=== PATIENT | male | born 1945 | race Caucasian/White ===

== ENCOUNTER 2024-03-16 08:10 | Day surgery (SDC) | payer MEDICARE, BC, SELFPAY ==
[2024-03-16] VITALS (7 sets, daily range): BP systolic 109–134; BP diastolic 59–78; PULSE 72–86; RESP 12–17; TEMP 36.2–36.3; O2SAT 95–97; BMI 20.5
[2024-03-16 10:22] LABS: Alanine Aminotransferase 15 U/L (10-49); Albumin, Serum 4.8 gm/dL (3.4-4.8); Albumin/Globulin Ratio 1.9 (1.2-2.2); Alkaline Phosphatase 72 U/L (46-116); Anion Gap 14 (7-16); Aspartate Amino Transferase 21 U/L (0-34); BUN/Creatinine Ratio 15 Ratio (12-20); Bilirubin,Total 1.3 mg/dL (0.3-1.2); Blood Urea Nitrogen 16 mg/dL (9-23); Calcium 9.9 mg/dL (8.3-10.6); Calcium (Corrected) 9.9 mg/dL (8.5-10.1); Carbon Dioxide 21.5 mMol/L (20.0-31.0); Chloride 105 mMol/L (98-107); Creatinine (Component) 1.1 mg/dL (0.6-1.3); Estimated Creatinine Clearance 47.9 mL/min (>60); Globulin 2.5 gm/dL (2.3-3.5); Glucose 93 mg/dL (74-106); Osmolality,Calculated 280 (275-295); Potassium 3.4 mMol/L (3.4-5.1); Sodium 140 mMol/L (136-145); Total Protein 7.3 gm/dL (5.7-8.2); eGFR > 60 See Note
[2024-03-16] MEDS: SODIUM CHLORIDE 0.9% 500 ML 500 ML 20 ML IV (10:57)
--- NOTE | 2024-03-16 11:47 | SUR.PHASEII ---
pt able to tolerate oral fluids without difficulty swallowing or nausea/vomiting.
--- NOTE | 2024-03-16 12:22 | SUR.PHASEII ---
pt awake and alert, breathing unlabored on room air. v/s stable. pt able to ambulate to wheelchair with steady gait. d/c instructions given with Kimberli in room, all questions answered. pt d/c via wheelchair with steady gait.
== END 2024-03-16 12:22 | disposition home or self-care (01) ==
PROVIDERS: Anesthesiology; Referring Provider Specialist; Visit Provider Specialist
PROC: (CPT 43239; principal; 2024-03-16 15:15)
PROC: 0DBE8ZX Excision of Large Intestine, Via Natural or Artificial Opening Endoscopic, Diagnostic (ICD-10-PCS; CPT 45380; 2024-03-16 15:15)
DX: K64.9 Unspecified hemorrhoids (principal); K57.30 Diverticulosis of large intestine without perforation or abscess without bleeding; K22.10 Ulcer of esophagus without bleeding; K21.00 Gastro-esophageal reflux disease with esophagitis, without bleeding; K29.70 Gastritis, unspecified, without bleeding
CPT/HCPCS: 45378; 43239; 36415; 80053; A4649; J7040

== ENCOUNTER 2024-06-14 14:03 | Emergency (ER) | payer MEDICARE, BC, SELFPAY ==
[2024-06-14 14:05] VITALS: BMI 20.7
[2024-06-14 14:16] VITALS: BP 143/79; PULSE 91; RESP 18; TEMP 36.9; O2SAT 94
--- NOTE | 2024-06-14 14:28 | EKG_ITS ---
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
--- NOTE | 2024-06-14 14:28 | XR_ITS ---
Examination: Shoulder,left, 3 views Technique: Shoulder AP internal rotation, AP external rotation, Y view shoulder, 3 views Exam date and time :June 14, 2024 1431 hrs. Indications: Patient fell 2 days ago with injury to the shoulder, shoulder pain. Findings: No shoulder fracture or dislocation Advanced narrowing glenohumeral joint Impression: No fracture
--- NOTE | 2024-06-14 15:00 | PD.EDUPEX ---
Upper Extremity Injury RME/HPI General Chief Complaint: Fall Stated Complaint: Fall yesterday, Pain Left shoulder, left chest Time Seen by Provider: 06/14/24 14:07 Source: patient Arrival date/time: 06/14/24 14:03 78-year-old male with a history of hyperlipidemia, hypertension presents to the emergency room with a chief complaint of a ground-level fall that occurred yesterday afternoon causing him to fall on his left shoulder. Patient states he fell back on the chair and there was no head injury neck injury. Mode of arrival: ambulatory Limitations: no limitations Related Data Home Medications ?Medication ?Instructions ?Recorded ?Confirmed alfuzosin 10 mg tablet,extended 10 mg PO QDAY 03/16/24 03/16/24 release 24 hr atorvastatin 20 mg tablet 20 mg PO QDAY 03/16/24 03/16/24 fluoxetine 40 mg capsule 40 mg PO QDAY 03/16/24 03/16/24 lamotrigine 200 mg tablet 200 mg PO QDAY 03/16/24 03/16/24 lorazepam 2 mg tablet 2 mg PO QDAY PRN Anxiety 03/16/24 03/16/24 Held on 03/16/24. Instructions: Resume on 03/17/24. losartan 50 mg tablet 50 mg PO QDAY 03/16/24 03/16/24 methylphenidate HCl 10 mg tablet 10 mg PO QDAY 03/16/24 03/16/24 omeprazole 20 mg tablet,delayed 20 mg PO QDAY 03/16/24 03/16/24 release sildenafil 25 mg tablet 25 mg PO QDAY 03/16/24 03/16/24 Allergies Allergy/AdvReac Type Severity Reaction Status Date / Time ciprofloxacin (From Cipro) Allergy Rash Verified 03/16/24 08:44 Sulfa (Sulfonamide AdvReac Unknown RASH Verified 03/16/24 08:43 Antibiotics) Review of Systems Review of Systems Systems Reviewed: All systems reviewed, normal except as documented Constitutional Constitutional: Reports system reviewed and no additional complaints, except as documented, Denies fatigue, Denies fever(s), Denies headache(s) and Denies weakness Eyes Eyes: Reports system reviewed and no additional complaints, except as documented, Denies blurry vision and Denies change in vision ENT Ears, Nose, Mouth, and Throat: Reports system reviewed and no additional complaints, except as documented, Denies otalgia, Denies headache(s), Denies nasal congestion, Denies throat swelling and Denies vertigo Cardiovascular Cardiovascular: Reports system reviewed and no additional complaints, except as documented, Denies chest pain, Denies dyspnea and Denies dyspnea on exertion Respiratory Respiratory: Reports system reviewed and no additional complaints, except as documented, Denies chest congestion, Denies cough, Denies dyspnea, Denies dyspnea on exertion and Denies wheezing Gastrointestinal Gastrointestinal: Reports system reviewed and no additional complaints, except as documented, Denies abdominal pain, Denies cramping, Denies nausea and Denies vomiting Genitourinary Genitourinary: Reports system reviewed and no additional complaints, except as documented, Denies dysuria and Denies hematuria Musculoskeletal Musculoskeletal: Reports system reviewed and no additional complaints, except as documented, Reports arthralgias, Denies back pain, Reports joint swelling and Reports limited range of motion Integumentary/Breasts Skin/Breast: Reports system reviewed and no additional complaints, except as documented and Denies wounds Neurologic Neurologic: Reports system reviewed and no additional complaints, except as documented, Denies confusion, Denies headache(s), Denies lack of coordination, Denies vertigo and Denies weakness Psychiatric Psychiatric: Reports system reviewed and no additional complaints, except as documented, Denies anxiety, Denies confusion, Denies depression, Denies paranoia, Denies suicidal ideation and Denies tactile hallucinations Endocrine Endocrine: Reports system reviewed and no additional complaints, except as documented and Denies fatigue Hematologic/Lymphatic Hematologic/Lymphatic: Reports system reviewed and no additional complaints, except as documented and Denies lymphadenopathy Allergic/Immunologic Allergic/Immunologic: Reports system reviewed and no additional complaints, except as documented, Denies throat swelling, Denies urticaria and Denies wheezing Past Medical History Past Medical History NEUROLOGIC: Negative Neurological Disorders or Seizures CARDIAC: Positive Cardiac Disorders and Hypertension; Negative Congestive Heart Failure RESPIRATORY: Negative Chronic Obstructive Pulmonary Disease (COPD) GASTROINTESTINAL: Positive Gastrointestinal Disorders, Diverticulitis and Diverticulosis GENITOURINARY: Positive Benign Prostatic Hyperplasia; Negative Renal Disease MUSCULOSKELETAL: Positive Musculoskeletal Disorders and Arthritis ENT: Positive Cataracts ENDOCRINE: Negative Diabetes Mellitus Type 1 or Diabetes Mellitus Type 2 PSYCHO/SOCIAL: Negative Depression or Anxiety OTHER HISTORY: Positive Chicken Pox, Measles and Mumps; Negative Blood Transfusions or Anesthesia Reactions Social History SMOKING STATUS: Never smoker ED Exam General Limitations: Present no limitations General appearance: Present alert and in no apparent distress Head Head exam: Present atraumatic, normocephalic and normal inspection Eye Eye exam: Present normal appearance, PERRL and EOMI ENT ENT exam: Present normal exam, normal oropharynx and mucous membranes moist Neck Neck exam: Present normal inspection, full ROM and trachea midline Chest Chest inspection: Present normal inspection and symmetric chest wall rise Respiratory Respiratory exam: Present normal lung sounds bilaterally Cardiovascular Cardiovascular exam: Present regular rate, normal rhythm and normal heart sounds Abdominal Exam Abdominal exam: Present soft and normal bowel sounds Extremities Exam Extremities exam: Present normal inspection and full ROM Expanded Upper Extremity Exam Shoulder exam: Present tenderness, swelling and tenderness over AC joint; Absent full ROM Arm exam: Present normal inspection Elbow exam: Present normal inspection Forearm/Wrist exam: Present normal inspection Hand exam: Present normal inspection Vascular exam: Normal capillary refill Back Exam Back exam: Present normal inspection and full ROM Neurological Exam Neurological exam: Present alert, oriented X3, CN II-XII intact, normal gait and reflexes normal Expanded Neurological Exam Patient oriented to: Present person, place and time Speech: Present fluid speech Cranial nerves: Normal: EOM function (II, III, IV, ), facial sensation (V) and facial palsy (VII) Cerebellar function: Present normal gait Motor strength - LUE: 5/5 Motor strength - RUE: 5/5 Motor strength - LLE: 5/5 Motor strength - RLE: 5/5 Coma scale eye opening: spontaneous Coma scale motor response: obeys commands Coma scale verbal response: oriented Coma scale total: 15 Psychiatric Psychiatric exam: Present normal affect and normal mood Skin Skin exam: Present warm, dry, intact and normal color Course Quality Measures none Orders Category Date Time Status EKG (ED ONLY) *Do not use* NOW Care 06/14/24 14:29 Completed EKG (ED Only) Stat Exams 06/14/24 14:28 Draft XR shoulder LT min 2V Stat Exams 06/14/24 14:28 Completed BNP [B-Type Natriuretic Peptide] Stat Lab 06/14/24 14:55 Completed CBC Stat Lab 06/14/24 14:55 Completed CMP [Comprehensive Metabolic Panel] Stat Lab 06/14/24 14:55 Completed Troponin I Stat Lab 06/14/24 14:55 Completed Vital Signs Vital signs: Vital Signs Temperature 98.4 F 06/14/24 14:16 Pulse Rate 91 06/14/24 14:16 Respiratory Rate 18 06/14/24 14:16 Blood Pressure 143/79 H 06/14/24 14:16 Pulse Oximetry (%) 94 L 06/14/24 14:16 Oxygen Delivery Method Room Air 06/14/24 14:16 O2 saturation 94% within normal limits Extremity Injury MDM Narrative MDM Narrative:: 78-year-old male with a history of hyperlipidemia, hypertension presents to the emergency room with a chief complaint of a ground-level fall that occurred yesterday afternoon causing him to fall on his left shoulder. Patient states he fell back on the chair and there was no head injury neck injury. Patient is hemodynamically stable and in no apparent distress Physical examination shows tenderness and pain with palpation of the left shoulder as well as limited range of motion. Patient struggles to lift his left shoulder over his head. Patient states he had a ground-level fall but fell back on his chair and hit his left shoulder. There is no head injury neck injury. The patient did not lose consciousness. Patient was not dizzy or lightheaded. Patient is a GCS of 15 alert and oriented x 3 pupils are PERRLA EOMs are intact. Patient has a normal steady gait X-ray of the left shoulder was negative for any acute fracture or dislocation. Patient was educated to follow-up with his primary care provider for referral for an MRI to check for any ligament damage of the shoulder. Patient was discharged and educated to follow-up with primary care provider in the next 24 to 48 hours and return to the emergency room for any evidence of worsening signs or symptoms Patient data External records reviewed:: [facility] previous records Clinical information provided by:: patient Social determinants that could affect healthcare access:: none Patient has the following chronic illnesses:: No chronic illness How is presenting disease/condition affected by chronic disease/condition?: no chronic disease Evaluation data The following diagnostics were reviewed and interpreted by me:: lab results and radiology exam(s) Lab and/or radiology exams considered but not ordered:: Labs and radiology exams considered and ordered Interpretation Summary: X-ray of the shoulder-no acute fracture or dislocation Medications / Prescriptions Medications or Prescriptions considered but not ordered:: No medication given Medication administrations:: No medication given Consultations Consultation(s) initiated? (list below): No Diagnosis Upper Extremity Injury Differential Diagnosis: dislocation of shoulder, fracture of clavicle and other (Shoulder fracture/shoulder sprain) Most likely diagnosis given after review of the tests above:: Shoulder sprain Admission Indicated Admission indicated?: not indicated Admission Request Was there a request for admission?: No Disposition Plan Disposition Plan: Discharge Discharge Attestation Discharge Attestation: The patient and all family members were given an opportunity to ask questions and understood the discharge instructions. Discharge instructions specifically effects, indications for sooner follow up or return to the emergency department, and the expected course of current diagnosis. Patient condition: Stable Discharge Plan Plan Patient Disposition: HOME (Self Care) Disposition Comment: Stable Prescriptions/Referrals Prescriptions/Med Rec: No Action losartan 50 mg tablet 50 mg PO QDAY Patient Comments: TAKE 1 TABLET BY MOUTH EVERY DAY fluoxetine 40 mg capsule 40 mg PO QDAY atorvastatin 20 mg tablet 20 mg PO QDAY lamotrigine 200 mg tablet 200 mg PO QDAY methylphenidate HCl 10 mg tablet 10 mg PO QDAY sildenafil 25 mg Tablet 25 mg PO QDAY lorazepam 2 mg tablet 2 mg PO QDAY PRN (Reason: Anxiety) alfuzosin 10 mg tablet extended release 24 hr 10 mg PO QDAY Patient Comments: TAKE 1 TABLET BY MOUTH DAILY omeprazole 20 mg Tablet,Delayed Release (Dr/Ec) 20 mg PO QDAY Referrals: Allison Ivan MD [Primary Care Provider] - In 1 week Problem List Clinical Impression: Shoulder sprain Patient/Caregiver Discharge Instructions Education Materials: ED Shoulder Sprain Additional Instructions: Please follow-up with your primary care provider in the next 24 to 48 hours. X-ray of your left shoulder was completed and there is no acute fractures or dislocations. Please follow-up with your primary care provider as an MRI may be indicated to check for any ligament damage or tears. Your blood work was negative for any acute findings. For any evidence of worsening signs or symptoms return to the emergency room immediately Print Language: Sinhala Stand Alone Forms: [employer] Award Info., Patient Portal Info Letter PA/ALIYA Supervising Physician PA/ALIYA Supervising Physician: Dr. Nails
[2024-06-14 15:12] LABS: Basophils % (Auto) 1 % (0-2.5); Eosinophils % (Auto) 1 % (0-10); Hematocrit 41.8 % (41.0-53.0); Immature Granulocytes % (Auto) 0 % (0-0); Immature Granulocytes Auto 0.02 Thou/mm3 (0.00-0.00); Lymphocytes # (Auto) 1.1 Thou/mm3 (1.0-4.8); Lymphocytes % (Auto) 19 % (10-50); Mean Corpuscular HGB Conc 33.5 g/dl (31.0-37.0); Mean Corpuscular Hemoglobin 29.9 pg (25.0-35.0); Mean Corpuscular Volume 89 fL (80-100); Monocytes # (Auto) 0.5 Thou/mm3 (0.0-0.8); Monocytes % (Auto) 9 % (0-12); Neutrophils # (Auto) 4.2 Thou/mm3 (1.8-7.7); Neutrophils % (Auto) 71 % (37-80); Nucleated Red Blood Cell % 0 /100 WBC (0); Platelet Count 160 Thou/mm3 (140-440); RDW Standard Deviation 47.8 fL (35.1-43.9); Red Blood Count 4.69 Miln/mm3 (4.50-5.90)
[2024-06-14 15:30] LABS: B-Type Natriuretic Peptide < 20 pg/mL (0-100)
[2024-06-14 15:31] LABS: Alanine Aminotransferase 11 U/L (10-49); Albumin, Serum 4.5 gm/dL (3.4-4.8); Albumin/Globulin Ratio 1.8 (1.2-2.2); Alkaline Phosphatase 69 U/L (46-116); Anion Gap 8 (7-16); Aspartate Amino Transferase 17 U/L (0-34); BUN/Creatinine Ratio 23 Ratio (12-20); Bilirubin,Total 0.8 mg/dL (0.3-1.2); Blood Urea Nitrogen 23 mg/dL (9-23); Calcium 9.4 mg/dL (8.3-10.6); Calcium (Corrected) 9.4 mg/dL (8.5-10.1); Carbon Dioxide 24.7 mMol/L (20.0-31.0); Chloride 104 mMol/L (98-107); Estimated Creatinine Clearance 54.7 mL/min (>60); Globulin 2.5 gm/dL (2.3-3.5); Glucose 101 mg/dL (74-106); Osmolality,Calculated 277 (275-295); Potassium 4.1 mMol/L (3.4-5.1); Sodium 137 mMol/L (136-145); Troponin I < 0.020 ng/mL (0.0-0.045); eGFR > 60 See Note
== END 2024-06-14 18:24 | disposition home or self-care (01) ==
PROVIDERS: Nurse Practitioner Family; Emergency Provider Emergency Medicine; PCP Specialist
DX: S43.402A Unspecified sprain of left shoulder joint, initial encounter (principal); W18.30XA Fall on same level, unspecified, initial encounter; E78.5 Hyperlipidemia, unspecified; I10 Essential (primary) hypertension
CPT/HCPCS: 36415; 73030; 80053; 83880; 84484; 85025; 93005; 99283

== ENCOUNTER → 2024-07-16 | Outpatient (BNVA) | payer MEDICARE, BC, SELFPAY | END | disposition home or self-care (01) | PROVIDERS: PCP Specialist; Referring Provider Specialist; Visit Provider Urology | DX: N40.1 Benign prostatic hyperplasia with lower urinary tract symptoms (principal); N13.8 Other obstructive and reflux uropathy; N52.9 Male erectile dysfunction, unspecified; K57.30 Diverticulosis of large intestine without perforation or abscess without bleeding; N28.1 Cyst of kidney, acquired; N40.2 Nodular prostate without lower urinary tract symptoms; I10 Essential (primary) hypertension | CPT/HCPCS: 81003; 99212; G0463 ==

== ENCOUNTER → 2024-07-16 | Outpatient (CLI) | payer MEDICARE, BC, SELFPAY ==
[2024-07-16 14:40] LABS: Prostate Specific Antigen 2.72 ng/mL (0-4.00)
== END | disposition home or self-care (01) ==
PROVIDERS: Referring Provider Urology; Visit Provider Urology
DX: N40.1 Benign prostatic hyperplasia with lower urinary tract symptoms (principal)
CPT/HCPCS: 36415; 84153

== ENCOUNTER 2024-10-10 12:49 | Emergency (ER) | payer MEDICARE, BC, SELFPAY ==
[2024-10-10 13:10] VITALS: BP 116/68; PULSE 83; RESP 18; TEMP 37; O2SAT 96; BMI 23.3
--- NOTE | 2024-10-10 13:16 | XR_ITS ---
Examination: CT brain head without contrast. 2-D sagittal coronal reconstructions Date and time of exam:October 10, 2024, 212 hours Indications: Headaches difficulty walking today CTDI: vol (mGy):77 DLP: (mGycm):1030 Technique: Multiple CT axial sections of the brain have been obtained, 5 mm slice thickness. Contrast has not been administered. 2-D sagittal, coronal reconstructions have been obtained Low dose protocols were performed. One or more of the following dose reduction techniques were used; automated exposure control, adjustment of the mA and/or KV according to patient size, use of iterative reconstruction technique. Findings: No significant ventricular enlargement. Frontal atrophy Intra-axial or extra-axial hemorrhage density is not seen. No mass effect or midline shift Basal cisterns are not remarkable. Fourth ventricle is midline. Cranial vault intact. Impression: Negative for acute hemorrhage, mass effect or midline shift
--- NOTE | 2024-10-10 13:16 | XR_ITS ---
Examination: AP chest single view Technique one AP portable upright chest single view Date and time: October 10, 2024 1339 hrs. Indications: Chest pain today. Findings: Normal heart size. Lungs are clear. The osseous structures are intact. Impression: No active disease Advanced osteoarthritis left glenohumeral joint
--- NOTE | 2024-10-10 13:16 | EKG_ITS ---
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
[2024-10-10 13:48] VITALS: BP 127/65; PULSE 82; RESP 12; O2SAT 93
--- NOTE | 2024-10-10 13:48 | PC.NURSE ---
pt here with c/o fatigue, headache, unsteady balance, not sleeping, and n/v for 4-[address] shahid in to see pt
--- NOTE | 2024-10-10 14:07 | PD.EDNEURO ---
Neuro Symptoms Deficit-RME/HPI General Chief Complaint: Nausea/Vomiting/Diarrhea Stated Complaint: FATIGUE, BODY ACHES, VOMITING BLOOD; UNSTEADY Time Seen by Provider: 10/10/24 13:50 Arrival date/time: 10/10/24 12:49 Limitations: no limitations RME / HPI RME / HPI Narrative: DR. ESPANA MAIN ED EVALUATION: 78 year old male with past medical history significant for hypertension and depression presents to the Emergency Department with complaints of unsteady gait, balance problems, fatigue, and not sleeping well. Onset of symptoms 4-5 days. Patient reports similar symptoms of unsteady gait 6 months ago. Related Data Home Medications ?Medication ?Instructions ?Recorded ?Confirmed alfuzosin 10 mg tablet,extended 10 mg PO QDAY 03/16/24 07/16/24 release 24 hr atorvastatin 20 mg tablet 20 mg PO QDAY 03/16/24 07/16/24 fluoxetine 40 mg capsule 40 mg PO QDAY 03/16/24 07/16/24 lamotrigine 200 mg tablet 200 mg PO QDAY 03/16/24 07/16/24 lorazepam 2 mg tablet 2 mg PO QDAY PRN Anxiety 03/16/24 07/16/24 Held on 03/16/24. Instructions: Resume on 03/17/24. losartan 50 mg tablet 50 mg PO QDAY 03/16/24 07/16/24 methylphenidate HCl 10 mg tablet 10 mg PO QDAY 03/16/24 07/16/24 omeprazole 20 mg tablet,delayed 20 mg PO QDAY 03/16/24 07/16/24 release sildenafil 25 mg tablet 25 mg PO QDAY 03/16/24 07/16/24 Allergies Allergy/AdvReac Type Severity Reaction Status Date / Time ciprofloxacin (From Cipro) Allergy Rash Verified 10/10/24 12:50 Sulfa (Sulfonamide AdvReac Unknown RASH Verified 10/10/24 12:50 Antibiotics) Review of Systems Review of Systems Systems Reviewed: All systems reviewed, normal except as documented Past Medical History Past Medical History CARDIAC: Positive Cardiac Disorders and Hypertension GASTROINTESTINAL: Positive Gastrointestinal Disorders, Diverticulitis and Diverticulosis GENITOURINARY: Positive Benign Prostatic Hyperplasia MUSCULOSKELETAL: Positive Musculoskeletal Disorders and Arthritis ENT: Positive Cataracts PSYCHO/SOCIAL: Positive Depression OTHER HISTORY: Positive Chicken Pox, Measles and Mumps Social History SMOKING STATUS: Never smoker SUBSTANCE USE: does not use ALCOHOL: Never ED Exam General Limitations: Present no limitations General appearance: Present alert and in no apparent distress Head Head exam: Present atraumatic, normocephalic and normal inspection Eye Eye exam: Present normal appearance, PERRL and EOMI ENT ENT exam: Present normal exam, normal oropharynx and mucous membranes moist Neck Neck exam: Present normal inspection, full ROM and trachea midline Chest Chest inspection: Present normal inspection and symmetric chest wall rise Respiratory Respiratory exam: Present normal lung sounds bilaterally Cardiovascular Cardiovascular exam: Present regular rate, normal rhythm and normal heart sounds Abdominal Exam Abdominal exam: Present soft and normal bowel sounds Extremities Exam Extremities exam: Present normal inspection and full ROM Back Exam Back exam: Present normal inspection and full ROM Neurological Exam Neurological exam: Present alert, oriented X3 and CN II-XII intact Expanded Neurological Exam Patient oriented to: Present person, place and time Speech: Present fluid speech Motor strength - LUE: 5/5 Motor strength - RUE: 5/5 Motor strength - LLE: 5/5 Motor strength - RLE: 5/5 Psychiatric Psychiatric exam: Present normal affect and normal mood Skin Skin exam: Present warm, dry, intact and normal color Course Quality Measures none Orders Category Date Time Status CT Screening NOW Care 10/10/24 14:11 Active Pet Feeder NOW Care 10/10/24 14:10 Completed Continuous Pulse Oximetry NOW Care 10/10/24 14:10 Completed EKG (ED ONLY) *Do not use* NOW Care 10/10/24 13:16 Completed Insert IV NOW Care 10/10/24 14:[address] angio carotid w head w Stat Exams 10/10/24 14:[address] head/brain wo con Stat Exams 10/10/24 13:16 Completed EKG (ED Only) Stat Exams 10/10/24 13:16 Draft XR chest 1V portable Stat Exams 10/10/24 13:16 Completed B-Type Natriuretic Peptide Stat Lab 10/10/24 13:52 Completed CBC Stat Lab 10/10/24 13:52 Completed Comprehensive Metabolic Panel Stat Lab 10/10/24 13:52 Completed Magnesium Stat Lab 10/10/24 13:52 Completed Partial Thromboplastin Time Stat Lab 10/10/24 13:52 Completed Prothrombin Time with INR Stat Lab 10/10/24 13:52 Completed Troponin I Stat Lab 10/10/24 13:52 Completed Urinalysis Stat Lab 10/10/24 13:41 Completed Sodium Chloride 0.9% 1000 ml [Ns] 1,000 ml Med 10/10/24 14:10 Active IV 100 mls/hr Vital Signs Vital signs: Vital Signs Temperature 98.6 F 10/10/24 13:10 Pulse Rate 83 10/10/24 13:10 Respiratory Rate 18 10/10/24 13:10 Blood Pressure 116/68 10/10/24 13:10 Pulse Oximetry (%) 96 10/10/24 13:10 Oxygen Delivery Method Room Air 10/10/24 13:10 Neuro Symptoms / Deficit MDM Narrative MDM Narrative:: I, Tayler Gomez, am scribing for and in the presence of Dr. Espana. He had MRI of his brain and cervical spine on 08/26/2024. Patient data External records reviewed:: [facility] previous records Clinical information provided by:: patient Social determinants that could affect healthcare access:: none Patient has the following chronic illnesses:: hypertension and depression How is presenting disease/condition affected by chronic disease/condition?: uneffected by Evaluation data The following diagnostics were reviewed and interpreted by me:: lab results, radiology exam(s) and EKG tracing(s) Lab and/or radiology exams considered but not ordered:: none Interpretation Summary: My interpretation: EKG performed at 1320 hours, sinus rhythm with first degree AV block, rate 80, right bundle branch block, no STEMI Procedure(s): CT head/brain wo con Accession Number(s): [id number] cc: Sean (PATRICK),Arnoldo NGUYEN; MIRYEA IVAN; Chuckie Marshall MD~ Examination: CT brain head without contrast. 2-D sagittal coronal reconstructions Date and time of exam:October 10, 2024, 212 hours Indications: Headaches difficulty walking today CTDI: vol (mGy):77 DLP: (mGycm):1030 Technique: Multiple CT axial sections of the brain have been obtained, 5 mm slice thickness. Contrast has not been administered. 2-D sagittal, coronal reconstructions have been obtained Low dose protocols were performed. One or more of the following dose reduction techniques were used; automated exposure control, adjustment of the mA and/or KV according to patient size, use of iterative reconstruction technique. Findings: No significant ventricular enlargement. Frontal atrophy Intra-axial or extra-axial hemorrhage density is not seen. No mass effect or midline shift Basal cisterns are not remarkable. Fourth ventricle is midline. Cranial vault intact. Impression: Negative for acute hemorrhage, mass effect or midline shift Dictated By: Chuckie Marshall MD Procedure(s): XR chest 1V portable Accession Number(s): [id number] cc: Sean (PATRICK),Arnoldo NGUYEN; MIREYA IVAN; Chuckie Marshall MD~ Examination: AP chest single view Technique one AP portable upright chest single view Date and time: October 10, 2024 1339 hrs. Indications: Chest pain today. Findings: Normal heart size. Lungs are clear. The osseous structures are intact. Impression: No active disease Advanced osteoarthritis left glenohumeral joint Dictated By: Chuckie Marshall MD Procedure(s): CT angio carotid w head w Accession Number(s): [id number] cc: Gen Espana MD; MIREYA IVAN; Chuckie Marshall MD~ Examination: CTA carotids with intravenous contrast CTA brain, head with intravenous contrast. 2-D sagittal, coronal reconstructions. 3-D reconstructions. Exam date and time: October 10, 2024, 1551 hrs. Indications: Headache and unsteady gait beginning 4 days ago CTDI: vol (mGy) 19 DLP: (mGycm) 463 Technique: Multiple CTA axial brain, head carotid images post intravenous contrast injection 75 cc, Isovue-370. 2-D sagittal, coronal reconstructions. 3-D reconstructions, 3-D post processing including vascular maximum intensity projection images. Low dose protocols were performed. One or more of the following dose reduction techniques were used; automated exposure control, adjustment of the mA and/or KV according to patient size, use of iterative reconstruction technique. Findings: No significant common carotid carotid bifurcation or internal carotid artery stenoses Dominant right vertebral artery in the neck with no critical stenoses No cerebral large vessel arterial occlusions, thrombus, dissection Impression: No significant neck arterial stenoses. No cerebral large vessel arterial occlusions or thrombus As clinically warranted, consider brain MRI MRA without contrast, stroke protocol, follow-up Dictated By: Chuckie Marshall MD Medications / Prescriptions Medications or Prescriptions considered but not ordered:: none Medication administrations:: Medication Administration History Sodium Chloride (Ns) 1,000 mls @ 100 mls/hr IV .Q10H ONE Stop: 10/11/24 00:09 Last Admin: 10/10/24 14:22 Dose: 100 mls/hr Documented By: [facility] see above Consultations Consultation(s) initiated? (list below): Yes Consultation #1 (Physician, Specialty, Details): Discussed test HPI, PMHx, lab, radiology results and/or management with Dr. Sanchez. Will follow-up with the patient as an outpatient. Time: 17:00 Diagnosis Neuro Differential Diagnosis: subarachnoid hemorrhage, cerebrovascular accident and transient cerebral ischemia Most likely diagnosis given after review of the tests above:: Disequilibrium Ataxic gait Admission Indicated Admission indicated?: not indicated Admission Request Was there a request for admission?: No Disposition Plan Disposition Plan: Discharge Discharge Attestation Discharge Attestation: The patient and all family members were given an opportunity to ask questions and understood the discharge instructions. Discharge instructions specifically effects, indications for sooner follow up or return to the emergency department, and the expected course of current diagnosis. Patient condition: Stable Discharge Plan Plan Patient Disposition: HOME (Self Care) Patient condition on transfer: Stable Prescriptions/Referrals Prescriptions/Med Rec: No Action losartan 50 mg tablet 50 mg PO QDAY Patient Comments: TAKE 1 TABLET BY MOUTH EVERY DAY fluoxetine 40 mg capsule 40 mg PO QDAY atorvastatin 20 mg tablet 20 mg PO QDAY lamotrigine 200 mg tablet 200 mg PO QDAY methylphenidate HCl 10 mg tablet 10 mg PO QDAY sildenafil 25 mg Tablet 25 mg PO QDAY lorazepam 2 mg tablet 2 mg PO QDAY PRN (Reason: Anxiety) alfuzosin 10 mg tablet extended release 24 hr 10 mg PO QDAY Patient Comments: TAKE 1 TABLET BY MOUTH DAILY omeprazole 20 mg Tablet,Delayed Release (Dr/Ec) 20 mg PO QDAY Referrals: Mireya Ivan MD [Primary Care Provider] - In 1 week Jony Sanchez MD [Physician] - 10/12/24 Problem List Clinical Impression: Disequilibrium, Ataxic gait Patient/Caregiver Discharge Instructions Additional Instructions: Please follow-up with your primary care physician within 2-3 days and follow up with Dr. Sanchez on Saturday. Return to the Emergency Department as needed. Print Language: [place]ian Stand Alone Forms: [employer] Award Info., Patient Portal Info Letter
--- NOTE | 2024-10-10 14:11 | XR_ITS ---
Examination: CTA carotids with intravenous contrast CTA brain, head with intravenous contrast. 2-D sagittal, coronal reconstructions. 3-D reconstructions. Exam date and time: October 10, 2024, 1551 hrs. Indications: Headache and unsteady gait beginning 4 days ago CTDI: vol (mGy) 19 DLP: (mGycm) 463 Technique: Multiple CTA axial brain, head carotid images post intravenous contrast injection 75 cc, Isovue-370. 2-D sagittal, coronal reconstructions. 3-D reconstructions, 3-D post processing including vascular maximum intensity projection images. Low dose protocols were performed. One or more of the following dose reduction techniques were used; automated exposure control, adjustment of the mA and/or KV according to patient size, use of iterative reconstruction technique. Findings: No significant common carotid carotid bifurcation or internal carotid artery stenoses Dominant right vertebral artery in the neck with no critical stenoses No cerebral large vessel arterial occlusions, thrombus, dissection Impression: No significant neck arterial stenoses. No cerebral large vessel arterial occlusions or thrombus As clinically warranted, consider brain MRI MRA without contrast, stroke protocol, follow-up
[2024-10-10 14:14] LABS: Collection Type, Urine Clean Catch
[2024-10-10] MEDS: SODIUM CHLORIDE 0.9% 1000 ML 1,000 ML 100 ML IV (14:22)
[2024-10-10 14:37] LABS: Basophils # (Auto) 0.0 Thou/mm3 (0.0-0.2); Basophils % (Auto) 0 % (0-2.5); Eosinophils # (Auto) 0.1 Thou/mm3 (0.0-0.5); Eosinophils % (Auto) 1 % (0-10); Hematocrit 38.8 % (41.0-53.0); Hemoglobin 13.3 g/dL (13.5-16.0); Immature Granulocytes Auto 0.03 Thou/mm3 (0.00-0.00); Lymphocytes # (Auto) 1.3 Thou/mm3 (1.0-4.8); Lymphocytes % (Auto) 17 % (10-50); Mean Corpuscular HGB Conc 34.3 g/dl (31.0-37.0); Mean Corpuscular Hemoglobin 30.2 pg (25.0-35.0); Mean Corpuscular Volume 88 fL (80-100); Monocytes # (Auto) 0.5 Thou/mm3 (0.0-0.8); Monocytes % (Auto) 6 % (0-12); Neutrophils # (Auto) 5.6 Thou/mm3 (1.8-7.7); Neutrophils % (Auto) 75 % (37-80); Nucleated Red Blood Cell # 0.00 Thou/mm3 (0.00-0.00); Nucleated Red Blood Cell % 0 /100 WBC (0); Platelet Count 171 Thou/mm3 (140-440); RDW Standard Deviation 47.8 fL (35.1-43.9); Red Blood Count 4.41 Miln/mm3 (4.50-5.90); White Blood Count 7.4 Thou/mm3 (3.8-10.6)
[2024-10-10 14:44] LABS: Bilirubin,Urine Negative (Negative); Blood,Urine Trace (Negative); Clarity,Urine Clear (Clear/Hazy); Color,Urine Lt-Yellow (Lt Yel-Yel); Glucose, Urine Negative (Negative); Ketones,Urine Negative (Negative); Leukocyte Esterase,Urine Negative (Negative); Nitrite,Urine Negative (Negative); PH,Urine 5.5 (5.0-7.0); Protein,Urine Negative (Neg - Trace); RBC,Urine 7 /hpf (0-3); Specific Gravity,Urine 1.028 (1.001-1.035); Squamous Epithelial Cell,Urine < 1 /hpf (0-5); Urobilinogen,Urine Negative mg/dL (0.0-1.0); WBC,Urine < 1 /hpf (0-5)
[2024-10-10 14:45] LABS: INR 0.9 (0.9-1.3); Partial Thromboplastin Time 27.8 Seconds (22.0-36.0); Prothrombin Time 10.4 Seconds (9.0-12.2)
[2024-10-10 15:14] LABS: B-Type Natriuretic Peptide < 20 pg/mL (0-100)
[2024-10-10 15:19] LABS: Alanine Aminotransferase 12 U/L (10-49); Albumin, Serum 4.5 gm/dL (3.4-4.8); Albumin/Globulin Ratio 1.7 (1.2-2.2); Alkaline Phosphatase 73 U/L (46-116); Anion Gap 12 (7-16); Aspartate Amino Transferase 19 U/L (0-34); BUN/Creatinine Ratio 18 Ratio (12-20); Bilirubin,Total 0.7 mg/dL (0.3-1.2); Blood Urea Nitrogen 22 mg/dL (9-23); Calcium 9.2 mg/dL (8.3-10.6); Calcium (Corrected) 9.2 mg/dL (8.5-10.1); Carbon Dioxide 23.8 mMol/L (20.0-31.0); Chloride 107 mMol/L (98-107); Creatinine (Component) 1.2 mg/dL (0.6-1.3); Estimated Creatinine Clearance 49.1 mL/min (>60); Globulin 2.6 gm/dL (2.3-3.5); Glucose 101 mg/dL (74-106); Magnesium 2.1 mg/dL (1.6-2.6); Osmolality,Calculated 288 (275-295); Potassium 4.0 mMol/L (3.4-5.1); Sodium 143 mMol/L (136-145); Total Protein 7.1 gm/dL (5.7-8.2); Troponin I < 0.020 ng/mL (0.0-0.045); eGFR > 60 See Note
[2024-10-10 16:00] VITALS: BP 131/70; PULSE 77; RESP 17; O2SAT 99
[2024-10-10 17:28] VITALS: BP 128/79; PULSE 77; RESP 18; O2SAT 94
== END 2024-10-10 17:30 | disposition home or self-care (01) ==
PROVIDERS: Nurse Practitioner Primary Care; Emergency Provider Family Medicine; PCP Specialist
DX: R42 Dizziness and giddiness (principal); R26.0 Ataxic gait; R51.9 Headache, unspecified; M19.012 Primary osteoarthritis, left shoulder; R07.9 Chest pain, unspecified; I44.0 Atrioventricular block, first degree; I45.10 Unspecified right bundle-branch block
CPT/HCPCS: 36415; 70450; 70496; 70498; 71045; 80053; 81001; 83735; 83880; 84484; 85025; 85610; 85730; 93005; 96360; 96361; 99284; A4649; J7030; Q9967